=== PATIENT | female | born 1980 | race Caucasian/White ===

== ENCOUNTER 2024-05-28 01:47 | Day surgery (SDC) | payer OTHER, SELFPAY ==
[2024-05-22 14:43] VITALS: BMI 22.8
--- NOTE | 2024-05-22 15:37 | PC.NURSE ---
Report to the Outpatient Waiting Room, entrance under the green pavilion located off [facility], at 0700 on 05-28-24. Planned Procedure Time: 0900. Time changes happen often and if your time is changed the preop area will call you the afternoon before. - You and your visitor will be asked to self-screen and do not enter if you have any COVID symptoms. - A mask is optional within the hospital at this time. Patients may have clear liquids (water, carbonated beverages, clear teas, apple juice) until 3 hours prior to surgery with a maximum of 20 ounces. 0600 - No food from midnight until time of surgery - Infants may have breast milk until 4 hours before surgery, formula 6 hours prior to surgery. - Children will be allowed to drink immediately following surgery. If applicable, please bring a bottle or sippy cup to assist with drinking. Juice, water, soda, and popsicles are readily available. For infants on formula, please bring formula the day of surgery. Pacifiers are allowed. Take the following medications with a SIP of water the morning of surgery: None Bring inhaler to hospital DOS DO NOT STOP ANY OF YOUR OTHER PRESCRIPTION MEDICATIONS PRIOR TO SURGERY ?EXCEPT THE FOLLOWING Medications to discontinue per physician: Meloxicam Date to take last dose: Per Dr. Welch Please no make-up, nail swiss, hairspray, perfume, deodorant, or body powder the day of surgery. No jewelry (including any body piercings) or valuables the day of surgery, leave them at home. Please take a shower or bath the night before, or the morning of, surgery with an antibacterial soap. Wear comfortable, loose fitting clothing. Children are encouraged to wear pajamas. - Jewelry must be removed prior to entering the operating room. Rings and piercings that are not removed may be cut off. - The hospital will not accept responsibility for valuables. - Please leave all valuables, including medications, at home the day of surgery. If you are going home after surgery, a licensed tractor trailer moving van driver must drive you home. - NO public transportation without another adult if you receive anesthesia. - We recommend that an adult stay with you for 24 hours following discharge. - We also recommend that you do not drive, make important decision, drink alcoholic beverages, or take any drugs that were not prescribed by your health care provider for at least 24 hours after your discharge time. For Pediatric surgeries, we recommend two adults accompany the child home. Follow any additional instructions given to you from your surgeon. If you or anyone in your household have experienced Covid symptoms in the past week, please notify your surgeon or the nurse liaison at the phone number below for possible testing. Telephone instructions given to Danielle Gil and asked if any additional questions and then verbalized understanding. Patient advised to call surgeon office or pre surgery nurse liaison [phone] if any additional questions.
[2024-05-28] VITALS (13 sets, daily range): BP systolic 95–160; BP diastolic 64–106; PULSE 67–96; RESP 10–21; TEMP 36.1–37.8; O2SAT 97–100
--- NOTE | 2024-05-28 06:08 | ECG_ITS ---
Test Date: 2024-05-28 07:59:08 Measurements Intervals [place] Rate: 67 P: 78 AR: 190 QRS: 46 QRSD: 73 T: 52 QT: 398 QTc: 420 Interpretive Statements SINUS RHYTHM BASELINE ARTIFACT- I, II, AVR, AVL NORMAL ECG No previous ECG available for comparison Electronically Signed On 05-28-2024 08:25:20 CDT by Gabino Guerrero D.O.
--- NOTE | 2024-05-28 06:33 | WPDHPUPDATE1 ---
History and Physical Update Update Date/Time: 05/28/24 06:33 History and Physical has been reviewed, including an updated exam of the patient. There are NO changes in the patient's condition. Risks, benefits, and alternatives have been discussed and questions answered. Patient agrees to proceed with procedure.
--- NOTE | 2024-05-28 06:33 | W.PM.PROC2 ---
Procedure Note - Detailed Date of Procedure 05/28/24 Pre-op Diagnosis skin laxity, micromastia, umbilical hernia Post-op Diagnosis Same Procedure Performed 1. Bilateral augmentation mammaplasty 2. Progressive tension abdominoplasty with suction lipectomy 3. Fat grafting to bilateral lateral hips Surgeon Jason Welch MD Anesthesia General Findings Bilateral Max Mitchell SoftTouch implants 520 Right - REF# SSF-520 SN [id number] Left - REF# SSF-520 SN [id number] Lipoaspirate: 2500 Fat grafting lateral thighs (hip dip): Right: 150 cc Left: 150 cc Tissue removed: 489 grams Description of Procedure They are here today for the above procedures. Previously and again today the risks, benefits, alternatives were discussed in extensive detail. I wanted them to be very realistic about the risks involved as well as expectations. We discussed aftercare and what to monitor for. I was very upfront about the risks of wound breakdown leading to loss of skin, open wounds, and need for additional procedures with permanent abdominal deformity. We discussed DVT/PE risks and management. Made sure answered all of their questions to their satisfaction today and consent was obtained. They were marked in the preoperative holding area with their verification. The patient was taken to the operating room. Anesthesia was provided by anesthesiology. A Zambrano catheter was started. Posterior Placed prone on the operating room table with care taken to protect from injury. Prepped and draped in a standard sterile fashion. A surgical time-out was taken. Stab incisions were made and tumescent solution was infiltrated. Once adequate time was allowed for hemostasis a 3mm fat grafting cannula was utilized to a gravity separation device for fat harvest. Also a 5mm basket and 3mm multi hole cannula were utilized to complete suction lipectomy based on S.A.F.E. technique in multiple planes and passes. Suction lipectomy continued to result based on pre-operative planning, intra-operative observation, and rolling pinch test which were in full agreement. Patient was then placed supine with care taken to protect from injury. Breast 1% lidocaine and 0.25% Marcaine with epinephrine was used anesthetize as a field block. She was prepped and draped in a standard sterile fashion. Tegaderm nipple Barron were placed. A 15 blade used to make an incision along the inframammary fold. Dissection was continued at 45 degree angle until the chest wall as identified. I incised the pectoralis major along its inferior border and completely released the inferior border leaving the medial border intact. I created a subpectoral pocket in the appropriate dimensions based on our preoperative planning for the implant. I then copiously irrigated with saline solution and verified a strict hemostasis. Next the use a triple antibiotic and Betadine containing solution to irrigate the pocket. I washed my gloves with the triple antibiotic and Betadine solution. We washed the implant immediately upon opening it with this solution and only opened it when we needed it. I used implant funnel and no-touch technique. The implant was introduced into the pocket using the funnel. Right implant was uneventful. While placing the left there was a atypical feel / difficulty advancing in the funnel and the implant was removed and examined. There was deformational change and this implant was wasted (REF F-520 SN [id number]). A new implant was opened and it was easily introduced into the left breast pocket with no concern. Having verified positioning of the implant this was closed using 2-0 PDS followed by 3-0 Monocryl in a running subcuticular 4-0 Monocryl followed by tissue glue. Abdomen I placed the patient in a flexed position to verify the upper and lower markings would reach. I then placed supine. A thorough abdominal examination was completed. Stab incisions were made and tumescent solut
[2024-05-28 07:34] LABS: Hematocrit 38.8 % (37.0-47.0); Hemoglobin 13.1 g/dL (12.0-15.0)
[2024-05-28] MEDS: LACTATED RINGERS 1,000 ML 30 ML IV CONT ×3 (07:54→14:53)
[2024-05-28] MEDS: KETOROLAC 15 MG/ML VIAL (*BKC) IV PUSH (07:55)
[2024-05-28] MEDS: ACETAMINOPHEN 500 MG TABLET 1000 MG PO (07:55)
--- NOTE | 2024-05-28 08:15 | PM.IMHP ---
H&P: HPI History of Present Illness Date/Time: 05/28/24 08:15 Chief Complaint: Umbilical hernia, skin laxity Narrative: 44 yo woman presents for umbilical hernia at time of abdominoplasty. She reports no significant changes since last seen in office. Review of Systems Review of Systems: All systems reviewed & are unremarkable except as noted in HPI and below Constitutional: Constitutional: Denies chills, Denies fever(s), Denies headache(s) and Denies weight loss Eyes: Eyes: Denies change in vision ENT: Denies dizziness, Denies headache(s), Denies neck mass and Denies throat swelling Cardiovascular: Cardiovascular: Denies chest pain, Denies lightheadedness and Denies dyspnea Respiratory: Respiratory: Denies cough, Denies dyspnea and Denies wheezing Gastrointestinal: Gastrointestinal: Denies abdominal pain, Denies change in bowel habits, Denies nausea and Denies vomiting Genitourinary: Genitourinary: Denies hematuria and Denies dysuria Musculoskeletal: Musculoskeletal: Reports as per HPI Integumentary/Breasts: Skin/Breast: Reports as per HPI Neurologic: Denies dizziness and Denies headache(s) Allergic/Immunologic: Allergic/Immunologic: Denies throat swelling and Denies wheezing PMFSH Past Medical History Medical History Heart palpitations Surgical History Surgical History H/O tubal ligation History of appendectomy History of exploratory laparotomy Mammographic fatty tissue density, bilateral breasts excised Family History Family History Father Alcoholism Hypertension Sibling Asthma Grandparent Cerebrovascular accident Grandparent Cancer Hypertension Heart disease Social History Social History (Updated 03/26/24 @ 13:26 by Desi Fletcher MA) Smoking packs per day: 1 Smoking cigarettes per day: 20.0 Years smoked: 5 Smoking pack-years: 5.00 Smoking status: Former smoker Tobacco type: cigarettes Second hand tobacco smoke exposure: No Smoking end date: 10/07/23 Alcohol intake: current Alcohol use details: very rarely Substance use: never Substance use type: does not use Do You Feel Safe in your Home?: Yes Lack of Transportation: No Lack of Food: Never True Current Housing: I Have Housing Concerned About Future Housing: No Difficulty Paying Gas/Electric Bills: No Difficulty Paying for Meds: No Currently Unemployed: No Education: Associate Degree Difficulty w/ Childcare or Family Care: No Living arrangements: with family 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 care concerns: No Meds Home Medications and Allergies Home Medications Medication Instructions Recorded Confirmed Type albuterol sulfate 90 mcg/actuation 2 puff inhalation Q4H PRN 09/23/23 05/22/24 History aerosol inhaler Shortness Of Breath Or Wheezing prazosin 1 mg capsule 1 mg PO QHS PRN PTSD 09/23/23 05/22/24 History meloxicam 7.5 mg tablet 7.5 mg PO DAILY 03/26/24 05/22/24 History carisoprodol 350 mg tablet (Soma) 350 mg PO Q8H PRN Muscle Spasm 05/22/24 05/22/24 History celecoxib 200 mg capsule 200 mg PO BID 05/22/24 05/22/24 History Allergies Allergy/AdvReac Type Severity Reaction Status Date / Time trazodone Allergy Severe Nightmare Verified 05/27/24 08:02 zolpidem Allergy Severe Hallucinati Verified 05/27/24 07:59 ng citalopram [From Celexa] Allergy Intermediate migraines Verified 05/22/24 14:34 duloxetine Allergy Intermediate Migraine Verified 05/27/24 07:59 Opioids - Morphine Analogues AdvReac Intermediate respiration Verified 05/22/24 15:44 depressed codeine AdvReac Mild gi upset Verified 05/22/24 14:34 Vital Signs Vital Signs - 24 hr 05/28/24 07:00 Temperature 37.8 C H Pulse Rate 77 Blood Pressure 160/106 H Pulse Ox
--- NOTE | 2024-05-28 08:17 | WPDHPUPDATE1 ---
History and Physical Update Update Date/Time: 05/28/24 08:17 History and Physical has been reviewed, including an updated exam of the patient. There are NO changes in the patient's condition. Risks, benefits, and alternatives have been discussed and questions answered. Patient agrees to proceed with procedure.
[2024-05-28] MEDS: ONDANSETRON INJ 4 MG/2 ML VIAL IV PUSH (08:19)
[2024-05-28] MEDS: SCOPOLAMINE 1 MG PATCH 1 PATCH TRANSDERM (08:19)
[2024-05-28 08:27] LABS: Urine Cotinine NEGATIVE
--- NOTE | 2024-05-28 09:03 | WPDANESEPPF ---
Anes - Initial Pre Proc Eval Procedure: Operation Date: 05/28/24 09:00 Proposed Procedures p Bilateral Breast Augmentation, - Jason Welch MD s Abdominoplasty with Liposuction, Fat Grafting to Bilateral Hips - Jason Welch MD s Open Umbilical Hernia Repair - Garth Castro DO Date/Time: 05/28/24 09:03 Surgeon: Jason Welch MD Pre Op Diagnosis: skin laxity, micromastia, umbilical hernia Patient Data Age: 44 Gender: F Height: 1.64 m Weight: 56.9 kg Last Vital Signs Temp 100.1 F H 05/28/24 07:00 Pulse 77 05/28/24 07:00 BP 160/106 H 05/28/24 07:00 Pulse Ox 100 05/28/24 07:00 O2 Del Method Room Air 05/28/24 07:00 Allergies Allergy/AdvReac Type Severity Reaction Status Date / Time trazodone Allergy Severe Nightmare Verified 05/27/24 08:02 zolpidem Allergy Severe Hallucinati Verified 05/27/24 07:59 ng citalopram [From Celexa] Allergy Intermediate migraines Verified 05/22/24 14:34 duloxetine Allergy Intermediate Migraine Verified 05/27/24 07:59 Opioids - Morphine Analogues AdvReac Intermediate respiration Verified 05/22/24 15:44 depressed codeine AdvReac Mild gi upset Verified 05/22/24 14:34 Home Medications Medication Instructions Recorded Confirmed Type albuterol sulfate 90 mcg/actuation 2 puff inhalation Q4H PRN 09/23/23 05/22/24 History aerosol inhaler Shortness Of Breath Or Wheezing prazosin 1 mg capsule 1 mg PO QHS PRN PTSD 09/23/23 05/22/24 History meloxicam 7.5 mg tablet 7.5 mg PO DAILY 03/26/24 05/22/24 History carisoprodol 350 mg tablet (Soma) 350 mg PO Q8H PRN Muscle Spasm 05/22/24 05/22/24 History celecoxib 200 mg capsule 200 mg PO BID 05/22/24 05/22/24 History Laboratory Tests 05/28/24 07:26 Hgb 13.1 g/dL (12.0-15.0) Hct 38.8 % (37.0-47.0) Cotinine Negative Patient hx anesthesia problems: post op nausea/vomiting Family hx anesthesia problems: none Results Review: All pre-operative results and documents have been reviewed as part of the pre-operative evaluation. [facility] Past Medical History Medical History Heart palpitations Surgical History Surgical History H/O tubal ligation History of appendectomy History of exploratory laparotomy Mammographic fatty tissue density, bilateral breasts excised Family History Family History Father Alcoholism Hypertension Sibling Asthma Grandparent Cerebrovascular accident Grandparent Cancer Hypertension Heart disease Social History Social History (Updated 03/26/24 @ 13:26 by Desi Fletcher MA) Smoking packs per day: 1 Smoking cigarettes per day: 20.0 Years smoked: 5 Smoking pack-years: 5.00 Smoking status: Former smoker Tobacco type: cigarettes Second hand tobacco smoke exposure: No Smoking end date: 10/07/23 Alcohol intake: former Alcohol use details: very rarely Substance use: never Substance use type: does not use Do You Feel Safe in your Home?: Yes Lack of Transportation: No Lack of Food: Never True Current Housing: I Have Housing Concerned About Future Housing: No Difficulty Paying Gas/Electric Bills: No Difficulty Paying for Meds: No Currently Unemployed: No Education: Associate Degree Difficulty w/ Childcare or Family Care: No Living arrangements: with family 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
[2024-05-28] MEDS: LACTATED RINGERS IRRIG 1,000 ML, LIDOCAINE HCL 1% LOCAL INJ 50 ML, EPINEPHrine HCL INJ ... INFILTRATE (09:14)
[2024-05-28] MEDS: NACL 0.9% IRRIG POUR BOTTLE 900 ML, GENTAMICIN SULFATE INJ 160 MG, ceFAZolin 2 GM, POVI... IRRIGATION (09:14)
[2024-05-28] MEDS: ceFAZolin 2 GM/D5W 50 ML 2 GM/50 ML BAG IVPB (09:14)
[2024-05-28] MEDS: BUPIVACAINE/EPINEPHRINE 0.5% 10 ML VIAL 60 ML INFILTRATE (09:14)
[2024-05-28] MEDS: LIDO 1%/EPINEPHRINE 1:100,000 50 ML VIAL 30 ML INFILTRATE (09:14)
[2024-05-28] MEDS: BUPivacaine HCL 0.25% PF 30 ML VIAL INFILTRATE (09:14)
[2024-05-28] MEDS: TRANEXAMIC ACID 1,000MG/ISO100 1,000 MG/100 ML BAG 200 MG IVPB (09:35)
[2024-05-28] MEDS: ceFAZolin SODIUM 1 GM VIAL IV PUSH (13:16)
--- NOTE | 2024-05-28 14:24 | W.PM.PROC2 ---
Procedure Note - Detailed Date of Procedure 05/28/24 Pre-op Diagnosis skin laxity, micromastia, umbilical hernia Post-op Diagnosis Same Procedure Performed Open 1 cm umbilical hernia repair Surgeon Garth Castro, DO Anesthesia General Indications This is a 44-year-old woman who presented with a small umbilical hernia. She was evaluated for abdominal plasty and was found to have this hernia. The hernia was very small but because of the planned abdominal plasty discussions were made with the patient about repairing this at the same time. Decision was made to proceed with open umbilical hernia repair at the time of abdominoplasty. Findings Open 1 cm umbilical hernia repair was performed. The patient was found to have a small hernia at the superior portion of the umbilicus. There was a small amount of preperitoneal fat contained within the hernia defect. The preperitoneal fat was excised and the hernia measured less than 1 cm. This was repaired using 0 Ethibond sutures. This was done once the abdominal wall was exposed for abdominoplasty. Please refer to Dr. Welch's note for details of his portion of the procedure. Description of Procedure Procedure as well as risks, benefits, and alternatives were discussed with the patient. Written consent was obtained and placed in chart prior to procedure. Patient was brought back to surgical suite. She was placed supine on operating table. Time-out was done to confirm patient and procedure. She was intubated by the anesthesia department. Her abdomen was prepped and draped in sterile fashion. Once the abdominal wall was exposed for abdominal plasty, was then called in to perform the umbilical hernia repair. I identified the umbilical stalk and a small amount of umbilical skin. There was a small hernia defect at the cephalad edge of the umbilical stalk. A 1 cm incision was made in linea alba just cephalad to the umbilical hernia using electrocautery. The preperitoneal fat was identified protruding up into the hernia defect and this was carefully dissected free using blunt dissection and electrocautery. The preperitoneal fat was excised completely the fascial edges appeared to come together without any tension. The hernia was then repaired using 0 Ethibond simple interrupted sutures. The 1st 2 sutures were placed in an inverted fashion to approximate the fascial edges on the undersurface of the umbilicus to avoid compromising the vascular supply to the umbilical stalk. The fascial incision cephalad to the umbilicus was then reapproximated using 0 Ethibond simple interrupted sutures as well. The repair was inspected and appeared secure. The remainder of the abdominal plasty procedure was then completed. Please refer to Dr. Welch's note for his details of his procedure. Estimated Blood Loss 150 Complications No immediate complications Condition Stable Disposition Observation [facility] Billing Surgery - Charge Forward: Surgery Billing
[2024-05-28] MEDS: fentaNYL CITRATE INJ (*CRX) 100 MCG/2 ML VIAL 25 MCG IV PUSH ×6 (15:29→15:45)
[2024-05-28] MEDS: oxyCODONE HCL (*CRX) 5 MG TAB IR PO (17:00)
== END 2024-05-28 15:32 | disposition home or self-care (01) ==
PROVIDERS: Anesthesiology; Surgery; PCP Family Medicine; Visit Provider Surgery Plastic and Reconstructive Surgery
PROC: (CPT 19325; principal; 2024-05-28 09:00)
PROC: (CPT 19325; 2024-05-28 09:00)
PROC: (CPT 49591; 2024-05-28 09:00)
DX: K42.9 Umbilical hernia without obstruction or gangrene (principal); Z41.1 Encounter for cosmetic surgery; L57.4 Cutis laxa senilis; N64.82 Hypoplasia of breast; Z87.891 Personal history of nicotine dependence; Z79.51 Long term (current) use of inhaled steroids
CPT/HCPCS: 19325; 15830; 15847; 15877; 15771; 15772 ×5; 49591; 36415; 80307; 85014; 85018; 93005; A9270; J0171; J0690; J1100; J1170; J1200; J1580; J1885; J2250; J2405; J2704; J3010; J7120

== ENCOUNTER 2024-06-14 03:59 | Emergency (ER) | payer OTHER, SELFPAY ==
[2024-06-14 04:06] VITALS: BP 131/89; PULSE 77; RESP 20; O2SAT 100
[2024-06-14] MEDS: LIDOCAINE 5% PATCH 1 PATCH TRANSDERM (04:45)
[2024-06-14] MEDS: GABAPENTIN 100 MG CAPSULE PO (04:45)
[2024-06-14] MEDS: KETOROLAC 30 MG/ML VIAL (*BKC) 15 MG IM (04:46)
--- NOTE | 2024-06-14 04:46 | ED.RECABL ---
HPI - Recheck/Abnormal Lab/Rx General Chief Complaint: Recheck/Abnormal Lab/Rx Stated Complaint: post op pain Time Seen by Provider: 06/14/24 04:18 History of Present Illness HPI narrative: Patient had breast augmentation and tummy tuck 2 weeks ago, since then she is having severe pain to the side of her left breast, described as a burning sensation, has tried taking her medications at home with only minimal improvement. Finally came in today because she cannot take the pain. Has also noticed some yellowish changes to her abdominal incision Related Data Home Medications Medication Instructions Recorded Confirmed albuterol sulfate 90 mcg/actuation 2 puff inhalation Q4H PRN 09/23/23 06/12/24 aerosol inhaler Shortness Of Breath Or Wheezing prazosin 1 mg capsule 1 mg PO QHS PRN PTSD 09/23/23 06/12/24 meloxicam 7.5 mg tablet 7.5 mg PO DAILY 03/26/24 06/12/24 carisoprodol 350 mg tablet (Soma) 350 mg PO Q8H PRN Muscle Spasm 05/22/24 06/12/24 celecoxib 200 mg capsule 200 mg PO BID 05/22/24 06/12/24 Allergies Allergy/AdvReac Type Severity Reaction Status Date / Time trazodone Allergy Severe Nightmare Verified 06/14/24 04:07 zolpidem Allergy Severe Hallucinati Verified 06/14/24 04:07 ng citalopram [From Celexa] Allergy Intermediate migraines Verified 06/14/24 04:07 duloxetine Allergy Intermediate Migraine Verified 06/14/24 04:07 Opioids - Morphine Analogues AdvReac Intermediate respiration Verified 06/14/24 04:07 depressed codeine AdvReac Mild gi upset Verified 06/14/24 04:07 Review of Systems Review of Systems: All systems reviewed & are unremarkable except as noted in HPI and below PMFSH Past Medical History Medical History (Updated 06/14/24 @ 04:40 by Clarisa Shaffer MD) Heart palpitations Surgical History Surgical History (Updated 06/12/24 @ 10:02 by Tere Pollard) H/O tubal ligation History of appendectomy History of exploratory laparotomy History of umbilical hernia repair Open 1 cm umbilical hernia repair 05/28/24 Mammographic fatty tissue density, bilateral breasts excised Family History Family History Father Alcoholism Hypertension Sibling Asthma Grandparent Cerebrovascular accident Grandparent Cancer Hypertension Heart disease Social History Social History Smoking packs per day: 1 Smoking cigarettes per day: 20.0 Years smoked: 5 Smoking pack-years: 5.00 Smoking status: Former smoker Tobacco type: cigarettes Second hand tobacco smoke exposure: No Smoking end date: 10/07/23 Alcohol intake: former Alcohol use details: very rarely Substance use: never Substance use type: does not use Do You Feel Safe in your Home?: Yes Lack of Transportation: No Lack of Food: Never True Current Housing: I Have Housing Concerned About Future Housing: No Difficulty Paying Gas/Electric Bills: No Difficulty Paying for Meds: No Currently Unemployed: No Education: Associate Degree Difficulty w/ Childcare or Family Care: No Living arrangements: with family 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 EYES: EOMI, conjunctiva normal ENT: Hearing grossly intact LUNGS: Nonlabored breathing. HEART: [Regular rate and rhythm] ABD: [Soft], [nontender to palpation] EXT: Normal range of motion SKIN: Well-healed incision left breast, no palpable hematoma, well-healed incision lower abdomen with small amount of possible granulation tissue versus possible yellowish discharge NEURO: [Alert and oriented x 3. No gross focal sensory or strength deficits.] PSYCH: Normal affect Course Vital Signs
== END 2024-06-14 05:00 | disposition home or self-care (01) ==
PROVIDERS: Emergency Provider Emergency Medicine; PCP Family Medicine
DX: G89.18 Other acute postprocedural pain (principal); N64.4 Mastodynia; Z87.891 Personal history of nicotine dependence; Z79.1 Long term (current) use of non-steroidal anti-inflammatories (NSAID)
CPT/HCPCS: 96372; 99283; A9270; J1885